=== PATIENT | female | born 2000 | race Two or more races ===

== ENCOUNTER 2022-10-18 00:50 | Emergency (ER) | payer OTHER ==
[~2022-10-18] VITALS: Ht 162.6 cm; Wt 54.0 kg
--- NOTE | 2022-10-18 01:27 | NUR ---
BIBSELF C/O BILAT FLANK PAIN AND PELVIC PAIN TROUBLE WITH URINATION, SINCE FRIDAY. -N/V/D. PT A/OX4. TOLERATING R/A WELL WITH NO RESP DISRESS. SAFETY MEASURES IN PLACE.
--- NOTE | 2022-10-18 01:44 | NUR ---
DR. MERCEDES CUNNINGHAM AT PT'S BEDSIDE FOR EVAL
--- NOTE | 2022-10-18 01:44 | NUR ---
URINE COLLECTED AND SENT TO LAB
[2022-10-18] MEDS ORDERED: ONDANSETRON HCL/PF 4 MG/2 ML VIAL ONE (01:49)
[2022-10-18] MEDS ORDERED: MORPHINE SULFATE INJ 4 MG/ML DISP.SYRIN ONE (01:50)
--- NOTE | 2022-10-18 02:08 | NUR ---
LAC #20G S/L BLOOD COLLECTED AND SENT TO LAB
[2022-10-18] MEDS: IV NS 0.9% 500 ML BAG IV ONE (02:11)
[2022-10-18 02:12] LABS: BASOPHILS % (AUTO) 0.2 % (0.0-2.0); HEMATOCRIT 46 % (33-45); HEMOGLOBIN 15.6 g/dL (11.5-14.8); LYMPHOCYTES # (AUTO) 1.9 K/uL (0.8-4.8); LYMPHOCYTES % (AUTO) 26.8 % (20.0-44.0); MEAN CORPUSCULAR HGB CONC 34 g/dl (31.0-36.0); MEAN CORPUSCULAR VOLUME 88 fL (82-100); MONOCYTES # (AUTO) 0.7 K/uL (0.1-1.30); MONOCYTES % (AUTO) 9.1 % (2.0-12.0); NEUTROPHILS # (AUTO) 4.5 K/uL (1.8-8.9); NEUTROPHILS % (AUTO) 62.9 % (43.0-81.0); PLATELET COUNT (AUTO) 263 K/uL (150-450); RED BLOOD CELL COUNT(AUTO) 5.22 MIL/uL (4.0-5.2); WHITE BLOOD COUNT (AUTO) 7.2 K/uL (4.3-11.0)
[2022-10-18] MEDS: MORPHINE SULFATE INJ 2 MG/ML DISP.SYRIN IV ONE (02:13)
[2022-10-18] MEDS: ONDANSETRON HCL/PF 4 MG/2 ML VIAL IVP ONE (02:14)
[2022-10-18 02:29] LABS: BILIRUBIN,URINE 1+ (NEGATIVE); COLOR,URINE DARK YELLOW (YELLOW); LEUKOCYTE ESTERASE ,URINE NEGATIVE (NEGATIVE); NITRITE, URINE NEGATIVE (NEGATIVE); PROTEIN,URINE 1+ mg/dl (NEGATIVE); UGLUCOSE NEGATIVE (NEGATIVE); UROBILINOGEN,URINE 0.2 EU/dL (0.2)
[2022-10-18 02:35] LABS: CALCIUM, SERUM 8.6 mg/dL (8.5-10.1); CREATININE 0.8 mg/dL (0.6-1.3); POTASSIUM 3.7 mmol/L (3.5-5.1)
[2022-10-18 02:36] LABS: BACTERIA,URINE Rare /HPF (None Seen); SQUAMOUS EPITHELIAL CELL,UR Few /HPF (None Seen)
[2022-10-18 02:47] LABS: ALBUMIN 4.2 g/dL (3.4-5.0); BILIRUBIN,DIRECT 0.1 mg/dL (0.0-0.2); BILIRUBIN,TOTAL 0.5 mg/dL (0.2-1.0); TOTAL PROTEIN, SERUM 7.8 g/dL (6.4-8.2)
--- NOTE | 2022-10-18 03:13 | NUR ---
RECEIVING COORDINATOR AT PT'S BEDSIDE
--- NOTE | 2022-10-18 05:00 | NUR ---
Patient discharged to home in stable condition. Written and verbal after care instructions given. Patient verbalizes understanding of instruction. IV removed. Catheter intact and site benign. Pressure and 4x4 applied to site. No bleeding noted.
[2022-10-18 05:20] VITALS: BP 121/72
== END 2022-10-18 05:21 | disposition home or self-care (01) ==
LOC: ER 00:55
DX: R10.2 Pelvic and perineal pain (principal); Z91.013 Allergy to seafood; Z91.018 Allergy to other foods; Z88.8 Allergy status to other drugs, medicaments and biological substances; Z60.2 Problems related to living alone
CPT/HCPCS: 99284; 96374; 76856; 96375; 85025; 80048; 80076; 81001; 36415; 85730; 84702; J2270; J2405; J7040